=== PATIENT | female | born 1975 | race Two or more races ===

== ENCOUNTER → 2020-04-21 | Outpatient (CLI) | payer OTHER | END | disposition home or self-care (01) | LOC: LAB 09:17 | PROVIDERS: ATTEND Preventive Medicine Preventive Medicine/Occupational Environmental Medicine | DX: Z02.1 Encounter for pre-employment examination (principal) | CPT/HCPCS: 36415; 86706; 86735; 86762; 86765; 86787 ==

== ENCOUNTER 2025-04-03 10:32 | Day surgery (SDC) | payer MEDICAID ==
[2025-03-29 11:47] LABS: Hematocrit 37.2 % (36.0-46.0); Hemoglobin 12.7 g/dL (12.2-16.2); Mean Corpuscular Hemoglobin 31.3 pg (28.0-32.0); Mean Corpuscular Volume 91.4 fL (80.0-100.0); Nucleated Red Blood Cells % 0.3 %
[2025-03-29 11:59] LABS: INR 1.04 (0.9-1.15); Partial Thromboplastin Time 29.4 SEC (24.5-34.5); Prothrombin Time 11.0 sec (9.3-11.8)
[2025-03-29 12:34] LABS: Urine Protein, UAD Negative (Negative)
[2025-03-29 12:57] LABS: Alanine Aminotransferase 22 U/L (7-40); Alkaline Phosphatase 76 U/L (46-116); Anion Gap 8 (5-15); BUN/Creatinine Ratio 21.7 (10.0-20.0); Blood Urea Nitrogen 13 mg/dL (9-23); Calcium 9.4 mg/dL (8.7-10.4); Chloride 102 mmol/L (98-107); Glucose 78 mg/dL (74-106); Potassium 3.9 mmol/L (3.5-5.1); Sodium 142 mmol/L (136-145); Total Protein 7.1 g/dL (5.7-8.2)
[2025-03-29 12:58] LABS: Albumin 4.1 g/dL (3.2-4.8)
[2025-03-29 12:59] LABS: Bilirubin, Total 0.5 mg/dL (0.2-1.0)
[2025-03-29 13:01] LABS: Carbon Dioxide 32 mmol/L (20-31)
[~2025-04-03] VITALS: Ht 167.6 cm; Wt 107.0 kg
[~2025-04-03 10:32] MED LIST: B-COCAP34 OR; CETI10TA2 PO; CHOL200031 PO; FENT25DI2 TD; FLUT100M IN; GABA400C PO; HYDR-4798 PO; HYDR25TA5 PO; MULT-610 OR; OMEP20TA PO; SEMA2.4I SC; TIZA4CAP PO
[2025-04-03] MEDS ORDERED: ONDANSETRON HCL 4 MG/2 ML VIAL ONE (10:53)
[2025-04-03] MEDS ORDERED: GLYCOPYRROLATE 0.2 MG/ML 1ML VIAL ONE (10:53)
[2025-04-03] MEDS ORDERED: PROPOFOL 10 MG/ML 20 ML IV ONE (10:53)
[2025-04-03] MEDS ORDERED: KETAMINE 50mg/ML 1ml syringe ONE (10:53)
[2025-04-03] MEDS ORDERED: LIDOCAINE 1% INJ PF 5ML AMP ONE (10:53)
[2025-04-03] MEDS ORDERED: KETOROLAC TROMETH 30 MG/ML 1ML VIAL ONE (10:53)
[2025-04-03] MEDS: ceFAZolin 2 GM/D5W50ml 50 ML IV ONE (11:30)
[2025-04-03] MEDS: LIDOCAINE 1% HCL (LOCAL ANESTH.) INJ 20ML MDV ONE (11:35)
--- NOTE | 2025-04-03 11:41 | DVHOP2 ---
Operative Report - 2 Report Details Date: 04/03/25 Preop Diagnosis: 1. Left foot plantar fascitis 2. Left foot calcaneal bone spur 3. Left foot pain Postop Diagnosis: Same as preop Surgeon: Dilma Fernando MD Anesthesiologist: See anesthesia Anesthesia: Mac Consent: The patient was informed of the risks and benefits of the procedure. These include but are not limited to complications of anesthesia, postoperative infection, incomplete relief of symptoms, recurrence of symptoms, damage to blood vessels, nerves and tendons, deep venous thrombosis, pulmonary embolism an d possible need for repeat surgery in the future. Complications: None Estimated Blood Loss: Minimal Fluids: See anesthesia Findings: Consistent with diagnosis Indications for Surgery: Worsening left foot pain Name of Procedure Performed 1. Left foot tenex plantar fasciotomy (41021) 2. Left foot bone spur excision (23004) Procedure Details Procedure Details: PRE-PROCEDURE INFORMATION: In the pre-op holding area, the extremity to be operated on was clearly marked and the patient verified correct laterality of the marking. The patient was transferred to the OR table and placed in a supine position. A timeout was performed in which identification of the correct patient, procedure, location, and materials was done. The left foot and leg were prepped and draped in normal sterile fashion. DESCRIPTION OF PROCEDURE: Attention was directed to the left medial aspect of the heel. Using a 15. Blade, a small stab incision was made. Using a hemostat the incision was deepened to the level of the plantar fascia and bone. Using a Tenex device, and ultrasound, the device was used to break up the scar tissue. After adequate debridement of the plantar fascia, it was noted on ultrasound that the thickness of the plantar fascia had improved. Using a power rasp, the heel bone spur was removed. The incision was then closed with 4-0 nylon. All surgical wounds were irrigated copiously with saline and closed in layers with the aforementioned suture material. A dry sterile dressing was placed on th e surgical extremity. The patient was placed in a post op shoe POSTOPERATIVE INFORMATION: The patient tolerated the above noted procedure and anesthesia well and was transferred to the PACU with vital signs stable, and vascular status intact with capillary refill intact to all digits. Postoperative instructions reviewed in detail with the patient with written instructions provided. Patient will return to clinic in approximately 10-14 days for first postoperative visit. Patient has the number of the clinic and was instructed to call prior to that time should any problems, questions, or concerns arise. Condition Good Disposition Home Visit Coding Podiatry Date of Service if different f: Apr 03, 2025 Billing Provider: DILMA FERNANDO DPM Podiatry Common Visit Codes: PROCEDURE ONLY DILMA FERNANDO DPM Apr 03, 2025 11:41
[2025-04-03 11:45] VITALS: PULSE 76; RESP 15; TEMP 97.2; O2SAT 99
[2025-04-03] MEDS ORDERED: HYDROmorphone HCL 2 MG/ML VL/or syr IV PRN (12:00)
[2025-04-03] MEDS ORDERED: FLUMAZENIL 0.1 MG/ML INJ 10ML MDV IV PRN (12:00)
[2025-04-03] MEDS ORDERED: hydrALAZINE HCL 20 MG/ML VL IV PRN (12:00)
[2025-04-03] MEDS ORDERED: NALOXONE HCL 0.4 MG/ML VIAL IV PRN (12:00)
[2025-04-03] MEDS ORDERED: fentaNYL CITRATE 100 MCG/2 ML VL IV PRN (12:00)
[2025-04-03] MEDS ORDERED: ACETAMINOPHEN IV 1000 MG/100ML (10MG/ML) IV ONE (12:00)
[2025-04-03] MEDS ORDERED: ONDANSETRON HCL 4 MG/2 ML VIAL IV PRN (12:00)
[2025-04-03 12:05] VITALS: BP 108/61; PULSE 65; RESP 12; O2SAT 100
== END 2025-04-03 12:20 | disposition home or self-care (01) ==
LOC: SUR 10:32
PROVIDERS: ATTEND Podiatrist
DX: M72.2 Plantar fascial fibromatosis (principal); M77.32 Calcaneal spur, left foot; M79.7 Fibromyalgia; K21.9 Gastro-esophageal reflux disease without esophagitis; M06.9 Rheumatoid arthritis, unspecified; Z79.899 Other long term (current) drug therapy; Z90.710 Acquired absence of both cervix and uterus; Z98.84 Bariatric surgery status; Z90.49 Acquired absence of other specified parts of digestive tract; Z98.890 Other specified postprocedural states; Z88.8 Allergy status to other drugs, medicaments and biological substances
CPT/HCPCS: 28119; 36415; 80053; 81001; 81025; 85025; 85610; 85730; J0690; J1100; J1885; J2003; J2405; J2704